=== PATIENT | female | born 1980 ===

== ENCOUNTER 2019-05-03 08:45 | Inpatient (IN) | payer OTHER ==
[~2019-05-03] VITALS: Ht 165.1 cm; Wt 62.6 kg
[2019-05-13] MEDS ORDERED: Tylenol #3 PO (09:04)
== END 2019-05-13 12:44 | disposition home or self-care (01) | DRG 741 ==
LOC: OB/GYN 05-12 06:05 → O/R 05-12 06:05 → OB/GYN 05-12 14:05
PROVIDERS: ADMIT Obstetrics & Gynecology
PROC: 0JQC0ZZ Repair Pelvic Region Subcutaneous Tissue and Fascia, Open Approach (ICD-10-PCS; 2019-05-12)
PROC: 0USG0ZZ Reposition Vagina, Open Approach (ICD-10-PCS; 2019-05-12)
PROC: 0UT97ZZ Resection of Uterus, Via Natural or Artificial Opening (ICD-10-PCS; principal; 2019-05-12 08:45)
DX: C53.1 Malignant neoplasm of exocervix (principal); N81.11 Cystocele, midline; N92.0 Excessive and frequent menstruation with regular cycle